=== PATIENT | female | born 1995 | race Caucasian/White ===

== ENCOUNTER 2018-07-21 10:34 | Emergency (ER) | payer BC ==
--- NOTE | 2018-07-21 11:10 | EDPHY ---
General Time Seen by Provider: 07/21/18 10:50 Narrative: CHIEF COMPLAINT: Blood in stool HISTORY OF PRESENT ILLNESS: Patient presents by private vehicle with her significant other with complaints of blood in her stool. This happened just wants this morning. She will get a bowel movement and noticed some blood in the stool. She does show me a picture of this. It was 1 single bowel movement with several episodes of blood on the stool itself. No bleeding in between stool. This was painless. She does have history of anal fissure, but this feels different. She has had no night sweats , fever, chills, nausea, vomiting or any abdominal pain. No bleeding from any other site. No use of anticoagulants. No recent travel. No recent surgery. She does have family history of irritable bowel, and she feels as though she may be undiagnosed with this. No other associated complaints or modifying factors. REVIEW OF SYSTEMS: 10 systems were reviewed and negative with the exception of the elements mentioned in the history of present illness. PCP: None currently SPECIALISTS: None PAST MEDICAL HISTORY: IUD in place. Anal fissures, asthma and pilonidal cyst PAST SURGICAL HISTORY: No abdominal surgeries SOCIAL HISTORY: Nonsmoker. 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 Lives independently with her spouse. Originally from [place], recently moving here FAMILY HISTORY: Noncontributory. Possible irritable bowel disorder in the family EXAMINATION: General Appearance: Alert, no distress. Ambulatory and conversing in full sentences. Head: normocephalic, atraumatic Eyes: Pupils equal and round, no conjunctival pallor or injection ENT, Mouth: Mucous membranes moist Neck: Normal inspection, supple, non-tender Respiratory: Lungs are clear to auscultation Cardiovascular: Regular rate and rhythm Gastrointestinal: Abdomen is soft and nontender. Bowel sounds are present all 4 quadrants. No tympany. No rigidity. No guarding. No palpable mass. Benign abdominal examination Back: non-tender, no bony abnormalities Neurological: A&O, nonfocal, normal gait Skin: Warm and dry, no rash Extremities: Nontender, no pedal edema Psychiatric: Mood and affect normal DIFFERENTIAL DIAGNOSES: Including but not limited to internal hemorrhoid, external hemorrhoid, anal fissure, colonic mass, diverticulosis, diverticulitis, rectocele MDM: 11:05 a.m. Bloody stool x1 today with no other complaint. She has a normal abdominal examination. Her vital signs are within normal limits. She is in no acute distress. No previous incidence of this. No history of inflammatory bowel or use of anticoagulants. She is very well-appearing nontoxic. I did offer further test including laboratory studies, anoscopy and digital rectal exam. She is discussing with her spouse 11:35 a.m. After she discussed further the spouse she consented to anoscopy. I performed this with female Rose Mary KOENIG at bedside at all times of the procedure. This was tolerated well. There was 1 small area of internal hemorrhoid.. No active bleeding. No external hemorrhoids. No fissure. No obvious mass or stricture of the rectum. We discussed discharge home with outpatient GI follow-up. We discussed increasing her fiber and water intake. We discussed strict ED precautions for return of bleeding, persistent bleeding, fever, abdominal pain, chest pain, shortness of breath or dizziness. She is comfortable this plan. She is well-appearing with no bleeding and no abdominal pain with benign abdominal examination. Discharged stable condition PROCEDURE: Anoscopy Indication: Blood in stool Consent: Verbal Anesthesia: None Solutions Engineer: Female Rose Mary KOENIG Description: After time-out and verbal consent, the endoscope was placed with sterile gloves and sterile lubricant. Was able to visualize the rectum with 1 small area of internal hemorrhoid that was not actively bleeding. I did not appreciate any mass, stricture or active bleeding. No external abnormalities on exam. Tolerated well. Complications: None SUPERVISION: This patient was independently evaluated without direct involvement of or examination by the attending physician. CONSULTATION: None - History Smoking Status: Never smoked - Objective Vital Signs: Initial Vital Signs Temperature (C) 98.1 F 07/21/18 10:38 Heart Rate 94 07/21/18 10:38 Respiratory Rate 16 07/21/18 10:38 Blood Pressure 144/90 H 07/21/18 10:38 O2 Sat (%) 98 07/21/18 10:38 O2 Delivery Mode Room Air Allergies/Adverse Reactions: No Known Allergies Allergy (Unverified 07/21/18 10:38) Home Medications: Medication Instructions Recorded Albuterol 07/21/18 Flonase Nasal [place] 07/21/18 MIRENA 07/21/18 Departure - Departure Disposition: Home, Routine, Self-Care Clinical Impression: Blood in stool, kaity Condition: Good Instructions: Rectal Bleeding (ED) Additional Instructions: 1. Increase her fiber and water intake for the next 2 weeks 2. Contact the on-call farm equipment operator Dr. Narinder Ervin for outpatient follow- up 3. Contact the on-call outpatient physician Dr. Moscoso to establish as a new patient 4. ED precautions for return of bleeding, persistent bleeding, abdominal pain, fever, weight loss, night sweats or chills, chest pain, shortness of breath or bleeding from other sites Referrals: Narinder Ervin MD, FACG [Medical Doctor] - As per Instructions Ping Moscoso MD [Medical Doctor] - As per Instructions
[2018-07-21 11:45] VITALS: BP 133/78
== END 2018-07-21 11:45 | disposition home or self-care (01) ==
PROC: 0DJD8ZZ Inspection of Lower Intestinal Tract, Via Natural or Artificial Opening Endoscopic (ICD-10-PCS; principal; 2018-07-21)
DX: K92.1 Melena (principal); Z87.19 Personal history of other diseases of the digestive system